=== PATIENT | female | born 1990 | race African-American/Black ===

== ENCOUNTER 2016-10-05 11:39 | Emergency (ER) | payer SELFPAY ==
[~2016-10-05] VITALS: Ht 175.3 cm; Wt 70.0 kg
[2016-10-05] MEDS ORDERED: IBUPROFEN 600MG TABLET PO ONE (12:30)
[2016-10-05] MEDS ORDERED: ACETAMINOPHEN WITH CODEINE 300/30MG TABLET PO ONE (13:30)
[2016-10-05 13:53] VITALS: BP 131/71
== END 2016-10-05 15:11 | disposition home or self-care (01) ==
LOC: ER 13:02
DX: S16.1XXA Strain of muscle, fascia and tendon at neck level, initial encounter (principal); V49.09XA Driver injured in collision with other motor vehicles in nontraffic accident, initial encounter; Y93.89 Activity, other specified; Y92.89 Other specified places as the place of occurrence of the external cause; Y99.8 Other external cause status
CPT/HCPCS: 71010; 72050; 99284